=== PATIENT | male | born 1960 | race Hispanic/Latino ===

== ENCOUNTER 2018-04-05 15:52 | Emergency (ER) | payer OTHER ==
[2018-04-05 16:00] VITALS: BMI 33.0
[2018-04-05 16:07] VITALS: BP 158/76; PULSE 83; RESP 18; TEMP 98.3; O2SAT 98
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
== END 2018-04-05 16:40 | disposition home or self-care (01) ==
LOC: ED 15:52
DX: Z04.1 Encounter for examination and observation following transport accident (principal)